=== PATIENT | male | born 1940 | race Caucasian/White ===

== ENCOUNTER → 2019-12-06 | Outpatient (CLI) | payer OTHER ==
[~2019-12-06] MED LIST: AMLODIPINE BESYL5 MG PO; BISACODYL SUPP10 MG RECTAL; CEFDINIR300 MG PO; CENTRUM SILVER1 EAC4 PO; FLONASE 0.05%50 MCG NASAL; GLYCOLAX POWDER17 G1 PO; HYDROCHLOROTHIA25 M1 PO; IBUPROFEN 200200 M1 PO; K-DUR 20 MEQ T20 MEQ PO; LORTAB 5 MG/5001 TA1 PO; MOM PO; PROAIR HFA8.5 GM INH; QUINAPRIL 20 MG20 MG PO; STOOL SOFTENER240 MG PO; SYMBICORT160 MCG/4. INH
== END ==
LOC: CAT 08:43
DX: R91.8 Other nonspecific abnormal finding of lung field (principal); R59.1 Generalized enlarged lymph nodes; D71 Functional disorders of polymorphonuclear neutrophils; N20.0 Calculus of kidney; J98.4 Other disorders of lung